=== PATIENT | male | born 1980 | race Caucasian/White ===

== ENCOUNTER 2019-12-13 11:19 | Emergency (ER) | payer SELFPAY ==
[~2019-12-13] VITALS: Ht 180.3 cm; Wt 93.2 kg
[2019-12-13 11:27] VITALS: Ht 180.3 cm; Wt 93.2 kg
[2019-12-13] MEDS ORDERED: HYDROCODON-ACE1 EA10 PO (11:28)
[2019-12-13 11:47] LABS: BASOPHILS 0.1 % (0-2); EOSINOPHILS 0.3 % (0-7); HEMATOCRIT 45.6 % (42.0-54.0); HEMOGLOBIN 15.9 g/dL (13.5-17.5); LYMPHOCYTES 43.8 % (15-50); MCH 33.5 pg (26.0-34.0); MCHC 34.9 g/dL (31.0-37.0); MCV 96.2 fL (80.0-100.0); MEAN PLATELET VOLUME 9.8 fL (7.4-10.4); NEUTROPHILS 48.8 % (40-80); PLATELET COUNT 307 10x3/uL (130-400); RBC 4.74 10x6/uL (4.20-6.10); RDW 12.4 % (11.5-14.5); WBC 7.3 10x3/uL (4.8-10.8)
[2019-12-13 11:56] LABS: CALC OSMOLALITY 270 mosm/kg (275-300); CALCIUM 8.4 mg/dL (8.5-10.1); CARBON DIOXIDE 21.1 mmol/L (21.0-32.0); CHLORIDE - SERUM 97 mmol/L (98-107); CREATININE - SERUM 1.1 mg/dL (0.6-1.3); GLUCOSE 127 mg/dL (74-106); POTASSIUM - SERUM 3.3 mmol/L (3.5-5.1); SODIUM 135 mmol/L (136-145); UREA NITROGEN 10 mg/dL (7-18); eGFR NON AFRICAN AMERICAN 79 mL/min (90-120)
[2019-12-13 12:01] LABS: APTT 26.2 SECONDS (22.8-39.4); INR 1.07 (0.85-1.17); PROTIME 13.8 SECONDS (11.6-15.0)
[2019-12-13 12:03] LABS: D-DIMER-QUANTITATIVE < 0.27 ug/mLFEU (0.20-0.54)
[2019-12-13 12:11] LABS: ALBUMIN 4.6 g/dL (3.4-5.0); ALKALINE PHOSPHATASE 64 U/L (30-120); ALT (SGPT) 63 U/L (10-68); CKMB 1.5 U/L (0.0-3.6); CREATINE KINASE 157 UL (21-232); MAGNESIUM - SERUM 1.9 mg/dL (1.8-2.4); PROTEIN - SERUM 7.8 g/dL (6.4-8.2); TROPONIN-I < 0.017 ng/mL (0.000-0.060)
[2019-12-13] MEDS ORDERED: VISTARIL50 MG PO (12:38)
[2019-12-13 14:36] LABS: BILIRUBIN NEGATIVE (NEGATIVE); KETONE SMALL mg/dL (NEGATIVE); NITRITE NEGATIVE (NEGATIVE); UROBILINOGEN NORMAL (NORMAL)
[2019-12-13 14:46] LABS: UDS - AMPHET NEGATIVE QUAL (NEGATIVE); UDS - BARB NEGATIVE QUAL (NEGATIVE); UDS - BENZO NEGATIVE QUAL (NEGATIVE); UDS - COCAINE NEGATIVE QUAL (NEGATIVE); UDS - OPIATE POSITIVE QUAL (NEGATIVE); UDS - PCP NEGATIVE QUAL (NEGATIVE); UDS - THC NEGATIVE QUAL (NEGATIVE)
[2019-12-13 14:56] VITALS: BP 145/105
== END 2019-12-13 14:57 | disposition home or self-care (01) ==
LOC: D.ER 11:19
PROVIDERS: Emergency Medicine
DX: R07.9 Chest pain, unspecified (principal); F41.9 Anxiety disorder, unspecified; E86.0 Dehydration; R03.0 Elevated blood-pressure reading, without diagnosis of hypertension; R73.9 Hyperglycemia, unspecified; E87.6 Hypokalemia; E83.51 Hypocalcemia